=== PATIENT | female | born 1945 | race Caucasian/White ===

== ENCOUNTER 2024-05-24 18:12 | Inpatient (IN) | payer MEDICARE ==
[2024-05-24] MEDS ORDERED: Sodium Chloride 0.9% 10 ML Syringe FLUSH PRN (18:34)
[2024-05-24 18:41] LABS: BASOPHILS PERCENT AUTO 0.5 % (0.2-1.2); EOSINOPHILS ABSOLUTE AUTO 0.2 x10^3/uL (0.0-0.5); EOSINOPHILS PERCENT AUTO 3.4 % (0.0-4.0); HEMATOCRIT 42.6 % (33.0-47.0); HEMOGLOBIN 13.4 g/dL (12.0-16.0); IMMATURE GRAN ABSOLUTE AUTO 0.01 x10^3/uL (0.00-0.07); LYMPHOCYTES ABSOLUTE AUTO 1.4 x10^3/uL (1.0-4.8); LYMPHOCYTES PERCENT AUTO 23.2 % (25.0-50.0); MEAN CORPUSCULAR HEMOGLOBIN 29.1 pg (26.0-32.0); MEAN CORPUSCULAR HGB CONC 31.5 g/dL (32.0-36.0); MEAN CORPUSCULAR VOLUME 92.4 fL (78.0-93.0); MONOCYTES ABSOLUTE AUTO 0.5 x10^3/uL (0.0-0.8); MONOCYTES PERCENT AUTO 7.6 % (2.0-11.0); NEUTROPHILS ABSOLUTE AUTO 3.9 x10^3/uL (1.8-7.7); NEUTROPHILS PERCENT AUTO 65.1 % (50.0-80.0); PLATELET COUNT,PLT 122 x10^3/uL (130-400); RED BLOOD CELL COUNT 4.61 x10^6/uL (4.00-5.50); WHITE BLOOD CELL COUNT,WBC 5.9 x10^3/uL (4.0-10.0)
[2024-05-24 19:04] LABS: A/G RATIO 0.72; ALBUMIN 3.1 g/dL (3.4-5.0); ANION GAP 13.5 mmol/L (5-15); BILIRUBIN TOTAL 0.5 mg/dL (0.2-1.0); CALCIUM 8.3 mg/dL (8.5-10.1); EST CRCL DRUG DOSING (CG) 16.93 mL/min; MAGNESIUM 1.9 mg/dL (1.8-2.4); POTASSIUM,K 4.5 mmol/L (3.5-5.1); PROTEIN TOTAL,TP 7.4 g/dL (6.4-8.2)
[2024-05-24] MEDS: Furosemide 40 MG/4 ML VIAL IV ONE (19:15)
[2024-05-24 19:46] LABS: CORONAVIRUS COVID-19 NAA NEGATIVE (NEGATIVE); INFLUENZA A NAA NEGATIVE (NEGATIVE); INFLUENZA B NAA NEGATIVE (NEGATIVE); RESPIRATORY SYNCYTIAL VIR NAA NEGATIVE (NEGATIVE)
[2024-05-24] MEDS ORDERED: Triamcinolone Acetonide 0.1% Crm 15 GM Tube TOP PRN (21:51)
[2024-05-24] MEDS ORDERED: Non-Formulary Medication 1 Each (Betamethasone Dipropionate [Diprosone 0.05% Crm] 15 GM Tu TOP PRN (21:51)
[2024-05-24] MEDS ORDERED: BETAMETHASONE DIPROPIONATE TOP PRN (22:17)
[2024-05-24] MEDS: Nicotine 14 MG/24 Hr Patch TRDERM SCH (23:31)
[2024-05-25] MEDS: Heparin Sodium 5,000 Units/ML Vial SUBCUT SCH ×2 (03:16→08:42)
[2024-05-25 06:47] LABS: BASOPHILS PERCENT AUTO 0.6 % (0.2-1.2); EOSINOPHILS ABSOLUTE AUTO 0.1 x10^3/uL (0.0-0.5); EOSINOPHILS PERCENT AUTO 1.7 % (0.0-4.0); HEMATOCRIT 41.1 % (33.0-47.0); HEMOGLOBIN 12.8 g/dL (12.0-16.0); LYMPHOCYTES ABSOLUTE AUTO 1.4 x10^3/uL (1.0-4.8); LYMPHOCYTES PERCENT AUTO 26.3 % (25.0-50.0); MEAN CORPUSCULAR HEMOGLOBIN 29.2 pg (26.0-32.0); MEAN CORPUSCULAR HGB CONC 31.1 g/dL (32.0-36.0); MEAN CORPUSCULAR VOLUME 93.6 fL (78.0-93.0); MONOCYTES ABSOLUTE AUTO 0.5 x10^3/uL (0.0-0.8); MONOCYTES PERCENT AUTO 9.5 % (2.0-11.0); NEUTROPHILS ABSOLUTE AUTO 3.2 x10^3/uL (1.8-7.7); NEUTROPHILS PERCENT AUTO 61.9 % (50.0-80.0); PLATELET COUNT,PLT 107 x10^3/uL (130-400); RED BLOOD CELL COUNT 4.39 x10^6/uL (4.00-5.50); WHITE BLOOD CELL COUNT,WBC 5.2 x10^3/uL (4.0-10.0)
[2024-05-25 07:09] LABS: A/G RATIO 0.74; ALBUMIN 2.8 g/dL (3.4-5.0); ANION GAP 8.4 mmol/L (5-15); BILIRUBIN TOTAL 0.5 mg/dL (0.2-1.0); CALCIUM 8.4 mg/dL (8.5-10.1); CREATININE 1.7 mg/dL (0.55-1.02); EST CRCL DRUG DOSING (CG) 19.92 mL/min; POTASSIUM,K 4.4 mmol/L (3.5-5.1); PROTEIN TOTAL,TP 6.6 g/dL (6.4-8.2)
[2024-05-25] MEDS: Bumetanide 1 MG Tab PO SCH (08:34)
[2024-05-25] MEDS: FLUoxetine 20 MG Cap PO SCH (08:35)
[2024-05-25] MEDS: Gabapentin 100 MG Cap PO SCH ×2 (08:35→14:20)
[2024-05-25] MEDS: Metoprolol Succinate 50 MG Tab.ER PO SCH (08:35)
[2024-05-25] MEDS: Furosemide 40 MG/4 ML VIAL IV SCH (08:36)
[2024-05-25] MEDS: Acetaminophen 325 MG Tab PO PRN (08:44)
[2024-05-25] MEDS: NICOTINE Remove Patch TRDERM SCH (08:49)
[2024-05-25] MEDS: Furosemide 40 MG/4 ML VIAL IV ONE (14:20)
[2024-05-25] MEDS: Gabapentin 300 MG Cap PO SCH (20:18)
[2024-05-26 07:47] LABS: HEMATOCRIT 41.7 % (33.0-47.0); HEMOGLOBIN 12.7 g/dL (12.0-16.0); MEAN CORPUSCULAR HEMOGLOBIN 28.9 pg (26.0-32.0); MEAN CORPUSCULAR HGB CONC 30.5 g/dL (32.0-36.0); RED BLOOD CELL COUNT 4.39 x10^6/uL (4.00-5.50); WHITE BLOOD CELL COUNT,WBC 5.2 x10^3/uL (4.0-10.0)
[2024-05-26 07:57] LABS: CALCIUM 8.3 mg/dL (8.5-10.1); CREATININE 1.7 mg/dL (0.55-1.02); EST CRCL DRUG DOSING (CG) 19.92 mL/min; MAGNESIUM 1.8 mg/dL (1.8-2.4)
[2024-05-26] MEDS: Metoprolol Succinate 25 MG Tab.ER PO SCH (09:04)
[2024-05-26] MEDS: Furosemide 40 MG/4 ML VIAL IV ONE (13:59)
[2024-05-27 07:03] LABS: ANION GAP 7.9 mmol/L (5-15); CALCIUM 8.1 mg/dL (8.5-10.1); CREATININE 1.5 mg/dL (0.55-1.02); EST CRCL DRUG DOSING (CG) 22.57 mL/min; MAGNESIUM 1.7 mg/dL (1.8-2.4); POTASSIUM,K 3.9 mmol/L (3.5-5.1)
[2024-05-27] MEDS: Albuterol/Ipratropium 3.0-0.5 MG/3 ML Neb Soln NEB ONE (08:50)
[2024-05-27] MEDS: Magnesium Chloride 64 MG Tab.ER PO ONE (08:51)
[2024-05-27] MEDS: Bumetanide 1 MG Tab PO SCH (08:51)
[2024-05-27 14:31] VITALS: BP 168/87; PULSE 68
== END 2024-05-27 13:58 | disposition home or self-care (01) | DRG 291 ==
LOC: SUPCPDRO 18:12 → VM.ED 18:12 → VM.MS 19:54
PROVIDERS: ADMIT Nurse Practitioner Family; ATTEND Family Medicine
DX: I11.0 Hypertensive heart disease with heart failure (principal); I50.23 Acute on chronic systolic (congestive) heart failure; R09.02 Hypoxemia; J96.01 Acute respiratory failure with hypoxia; N17.9 Acute kidney failure, unspecified; Z68.30 Body mass index [BMI] 30.0-30.9, adult; I27.20 Pulmonary hypertension, unspecified; F17.210 Nicotine dependence, cigarettes, uncomplicated; I25.10 Atherosclerotic heart disease of native coronary artery without angina pectoris; E78.00 Pure hypercholesterolemia, unspecified; F41.9 Anxiety disorder, unspecified; F32.A Depression, unspecified; E66.9 Obesity, unspecified; Z85.828 Personal history of other malignant neoplasm of skin; Z79.899 Other long term (current) drug therapy; Z68.27 Body mass index [BMI] 27.0-27.9, adult; Z98.890 Other specified postprocedural states
CPT/HCPCS: 0241U; 36415; 71045; 71046; 80048; 80053; 83735; 83880; 84484; 85025; 85027; 93005; 93010; 94760; 96374; 97116-GP; 97161-GP; 99284; 99285-25; A9270-GY; J1644; J1940; J7620-GY

== ENCOUNTER 2025-06-09 08:34 | Inpatient (IN) | payer MEDICARE ==
[2025-06-09] MEDS ORDERED: Formoterol/Mometasone 200-5 MCG 13 GM Inhaler INH PRN (16:55)
[2025-06-09] MEDS ORDERED: Triamcinolone Acetonide 0.1% Crm 15 GM Tube TOP PRN (16:55)
[2025-06-09] MEDS ORDERED: Albuterol HFA 18 Gm Inhaler INH PRN (16:55)
[2025-06-09] MEDS ORDERED: Tiotropium Bromide 4 GM Inhalation Spray (2.5mcg/1 dose; 10 doses) INH PRN (17:19)
[2025-06-09] MEDS: Clobetasol 0.05% Crm 30 GM Tube TOP SCH (20:18)
[2025-06-16 07:09] LABS: PLATELET COUNT,PLT 191.0 x10^3/uL (130-400); RED BLOOD CELL COUNT 3.23 x10^6/uL (4.00-5.50); WHITE BLOOD CELL COUNT,WBC 8.8 x10^3/uL (4.0-10.0)
[2025-06-16 07:30] LABS: A/G RATIO 0.55; ALANINE AMINOTRANSFERASE,ALT 7.0 U/L (14-59); ASPARTATE AMNIOTRANSFERASE,AST 20.0 U/L (15-37); BILIRUBIN TOTAL 0.8 mg/dL (0.2-1.0); BLOOD UREA NITROGEN,BUN 55.0 mg/dL (7-18); CARBON DIOXIDE,CO2 26.0 mmol/L (21-32); CHLORIDE,CL 102.0 mmol/L (98-107); CREATININE 3.0 mg/dL (0.55-1.02); EST CRCL DRUG DOSING (CG) 10.56 mL/min; GLUCOSE RANDOM 103.0 mg/dL (70-99); PHOSPHORUS 4.1 mg/dL (2.6-4.7); POTASSIUM,K 4.5 mmol/L (3.5-5.1); PROTEIN TOTAL,TP 6.5 g/dL (6.4-8.2); SODIUM,NA 138.0 mmol/L (136-145)
[2025-06-16 07:36] LABS: ESTIMATED GFR 15.0 mL/min (>=60)
[2025-06-19] MEDS: Menthol 10%/Methyl Salicylate 15% 85 GM Tube TOP PRN (20:45)
== END 2025-06-20 09:10 | disposition home or self-care (01) | DRG 948 ==
LOC: VM.MS 14:00
PROVIDERS: ADMIT Nurse Practitioner Family; ATTEND Nurse Practitioner Family
DX: R53.1 Weakness (principal); I50.22 Chronic systolic (congestive) heart failure; D62 Acute posthemorrhagic anemia; I13.0 Hypertensive heart and chronic kidney disease with heart failure and stage 1 through stage 4 chronic kidney disease, or unspecified chronic kidney disease; F33.0 Major depressive disorder, recurrent, mild; K92.0 Hematemesis; I25.10 Atherosclerotic heart disease of native coronary artery without angina pectoris; N18.9 Chronic kidney disease, unspecified; I27.20 Pulmonary hypertension, unspecified; F41.9 Anxiety disorder, unspecified; E66.9 Obesity, unspecified; F17.200 Nicotine dependence, unspecified, uncomplicated; J43.9 Emphysema, unspecified; E78.2 Mixed hyperlipidemia; R06.89 Other abnormalities of breathing; I77.1 Stricture of artery; I35.0 Nonrheumatic aortic (valve) stenosis; Z79.899 Other long term (current) drug therapy; Z79.52 Long term (current) use of systemic steroids; Z79.891 Long term (current) use of opiate analgesic; Z79.82 Long term (current) use of aspirin; Z68.23 Body mass index [BMI] 23.0-23.9, adult; Z85.828 Personal history of other malignant neoplasm of skin; Z98.49 Cataract extraction status, unspecified eye; Z98.890 Other specified postprocedural states; Z95.5 Presence of coronary angioplasty implant and graft; Q82.8 Other specified congenital malformations of skin
CPT/HCPCS: 36415; 80053; 83735; 84100; 85027; 94760; 97110-GP; 97116-GP; 97161-GP; 97165-GO; 97530-GO; 97530-GP; 97535-GO; A9270-GY

== ENCOUNTER 2025-09-01 15:25 | Inpatient (IN) | payer MEDICARE ==
[2025-09-01] MEDS ORDERED: Sodium Chloride 0.9% 10 ML Syringe FLUSH PRN (17:00)
[2025-09-01] MEDS: Heparin Sodium 5,000 Units/ML Vial SUBCUT SCH (21:04)
[2025-09-02 08:07] LABS: BASOPHILS ABSOLUTE AUTO 0.1 x10^3/uL (0.0-0.2); BASOPHILS PERCENT AUTO 0.7 % (0.2-1.2); EOSINOPHILS ABSOLUTE AUTO 0.4 x10^3/uL (0.0-0.5); EOSINOPHILS PERCENT AUTO 5.3 % (0.0-4.0); IMMATURE GRAN ABSOLUTE AUTO 0.03 x10^3/uL (0.00-0.07); IMMATURE GRAN PERCENT AUTO 0.40 % (0.00-0.43); LYMPHOCYTES ABSOLUTE AUTO 1.4 x10^3/uL (1.0-4.8); LYMPHOCYTES PERCENT AUTO 19.2 % (25.0-50.0); MONOCYTES ABSOLUTE AUTO 0.4 x10^3/uL (0.0-0.8); MONOCYTES PERCENT AUTO 5.0 % (2.0-11.0); NEUTROPHILS ABSOLUTE AUTO 5.1 x10^3/uL (1.8-7.7); NEUTROPHILS PERCENT AUTO 69.4 % (50.0-80.0); PLATELET COUNT,PLT 209 x10^3/uL (130-400); RED BLOOD CELL COUNT 2.92 x10^6/uL (4.00-5.50); WHITE BLOOD CELL COUNT,WBC 7.3 x10^3/uL (4.0-10.0)
[2025-09-02 08:34] LABS: A/G RATIO 0.42; ALANINE AMINOTRANSFERASE,ALT 9.0 U/L (14-59); ASPARTATE AMNIOTRANSFERASE,AST 13.0 U/L (15-37); BILIRUBIN TOTAL 0.3 mg/dL (0.2-1.0); CARBON DIOXIDE,CO2 31.0 mmol/L (21-32); CHLORIDE,CL 98.0 mmol/L (98-107); CREATININE 2.7 mg/dL (0.55-1.02); EST CRCL DRUG DOSING (CG) 11.0 mL/min; GLUCOSE RANDOM 89.0 mg/dL (70-99); POTASSIUM,K 4.2 mmol/L (3.5-5.1); PROTEIN TOTAL,TP 6.1 g/dL (6.4-8.2); SODIUM,NA 136.0 mmol/L (136-145)
[2025-09-02 08:35] LABS: BLOOD UREA NITROGEN,BUN 76.0 mg/dL (7-18); ESTIMATED GFR 17.0 mL/min (>=60)
[2025-09-04] MEDS ORDERED: Formoterol/Mometasone 200-5 MCG 13 GM Inhaler INH PRN (07:06)
[2025-09-04 07:23] LABS: BASOPHILS ABSOLUTE AUTO 0.0 x10^3/uL (0.0-0.2); BASOPHILS PERCENT AUTO 0.3 % (0.2-1.2); EOSINOPHILS ABSOLUTE AUTO 0.3 x10^3/uL (0.0-0.5); EOSINOPHILS PERCENT AUTO 3.7 % (0.0-4.0); IMMATURE GRAN ABSOLUTE AUTO 0.04 x10^3/uL (0.00-0.07); IMMATURE GRAN PERCENT AUTO 0.40 % (0.00-0.43); LYMPHOCYTES ABSOLUTE AUTO 1.3 x10^3/uL (1.0-4.8); LYMPHOCYTES PERCENT AUTO 14.2 % (25.0-50.0); MONOCYTES ABSOLUTE AUTO 0.5 x10^3/uL (0.0-0.8); MONOCYTES PERCENT AUTO 5.2 % (2.0-11.0); NEUTROPHILS ABSOLUTE AUTO 7.0 x10^3/uL (1.8-7.7); NEUTROPHILS PERCENT AUTO 76.2 % (50.0-80.0); PLATELET COUNT,PLT 203 x10^3/uL (130-400); RED BLOOD CELL COUNT 2.84 x10^6/uL (4.00-5.50); WHITE BLOOD CELL COUNT,WBC 9.2 x10^3/uL (4.0-10.0)
[2025-09-04 07:31] LABS: BLOOD UREA NITROGEN,BUN 55.0 mg/dL (7-18); CARBON DIOXIDE,CO2 28.0 mmol/L (21-32); CHLORIDE,CL 104.0 mmol/L (98-107); CREATININE 2.1 mg/dL (0.55-1.02); EST CRCL DRUG DOSING (CG) 14.29 mL/min; ESTIMATED GFR 23.0 mL/min (>=60); GLUCOSE RANDOM 88.0 mg/dL (70-99); PHOSPHORUS 2.9 mg/dL (2.6-4.7); POTASSIUM,K 4.6 mmol/L (3.5-5.1); SODIUM,NA 137.0 mmol/L (136-145)
[2025-09-04] MEDS: Albuterol HFA 18 Gm Inhaler INH PRN (19:07)
[2025-09-05] MEDS: Menthol 10%/Methyl Salicylate 15% 85 GM Tube TOP PRN (08:46)
[2025-09-06 07:12] LABS: BASOPHILS ABSOLUTE AUTO 0.0 x10^3/uL (0.0-0.2); BASOPHILS PERCENT AUTO 0.6 % (0.2-1.2); EOSINOPHILS ABSOLUTE AUTO 0.3 x10^3/uL (0.0-0.5); EOSINOPHILS PERCENT AUTO 5.5 % (0.0-4.0); IMMATURE GRAN ABSOLUTE AUTO 0.01 x10^3/uL (0.00-0.07); IMMATURE GRAN PERCENT AUTO 0.20 % (0.00-0.43); LYMPHOCYTES ABSOLUTE AUTO 1.2 x10^3/uL (1.0-4.8); LYMPHOCYTES PERCENT AUTO 18.9 % (25.0-50.0); MONOCYTES ABSOLUTE AUTO 0.4 x10^3/uL (0.0-0.8); MONOCYTES PERCENT AUTO 6.5 % (2.0-11.0); NEUTROPHILS ABSOLUTE AUTO 4.2 x10^3/uL (1.8-7.7); NEUTROPHILS PERCENT AUTO 68.3 % (50.0-80.0); PLATELET COUNT,PLT 177 x10^3/uL (130-400); RED BLOOD CELL COUNT 2.69 x10^6/uL (4.00-5.50); WHITE BLOOD CELL COUNT,WBC 6.2 x10^3/uL (4.0-10.0)
[2025-09-06 07:25] LABS: BLOOD UREA NITROGEN,BUN 54.0 mg/dL (7-18); CARBON DIOXIDE,CO2 30.0 mmol/L (21-32); CHLORIDE,CL 103.0 mmol/L (98-107); CREATININE 2.3 mg/dL (0.55-1.02); EST CRCL DRUG DOSING (CG) 13.78 mL/min; ESTIMATED GFR 21.0 mL/min (>=60); GLUCOSE RANDOM 87.0 mg/dL (70-99); POTASSIUM,K 5.0 mmol/L (3.5-5.1); SODIUM,NA 136.0 mmol/L (136-145)
[2025-09-07 06:49] LABS: BASOPHILS ABSOLUTE AUTO 0.1 x10^3/uL (0.0-0.2); BASOPHILS PERCENT AUTO 0.8 % (0.2-1.2); EOSINOPHILS ABSOLUTE AUTO 0.4 x10^3/uL (0.0-0.5); EOSINOPHILS PERCENT AUTO 6.6 % (0.0-4.0); IMMATURE GRAN ABSOLUTE AUTO 0.01 x10^3/uL (0.00-0.07); IMMATURE GRAN PERCENT AUTO 0.20 % (0.00-0.43); LYMPHOCYTES ABSOLUTE AUTO 1.3 x10^3/uL (1.0-4.8); LYMPHOCYTES PERCENT AUTO 22.2 % (25.0-50.0); MONOCYTES ABSOLUTE AUTO 0.4 x10^3/uL (0.0-0.8); MONOCYTES PERCENT AUTO 7.0 % (2.0-11.0); NEUTROPHILS ABSOLUTE AUTO 3.8 x10^3/uL (1.8-7.7); NEUTROPHILS PERCENT AUTO 63.2 % (50.0-80.0); PLATELET COUNT,PLT 182 x10^3/uL (130-400); RED BLOOD CELL COUNT 2.77 x10^6/uL (4.00-5.50); WHITE BLOOD CELL COUNT,WBC 6.0 x10^3/uL (4.0-10.0)
[2025-09-07 07:00] LABS: BLOOD UREA NITROGEN,BUN 51.0 mg/dL (7-18); CARBON DIOXIDE,CO2 29.0 mmol/L (21-32); CHLORIDE,CL 102.0 mmol/L (98-107); CREATININE 2.3 mg/dL (0.55-1.02); EST CRCL DRUG DOSING (CG) 13.78 mL/min; GLUCOSE RANDOM 90.0 mg/dL (70-99); POTASSIUM,K 5.0 mmol/L (3.5-5.1); SODIUM,NA 137.0 mmol/L (136-145)
[2025-09-07 07:02] LABS: ESTIMATED GFR 21.0 mL/min (>=60)
[2025-09-07] MEDS: Lactobacillus Rhamnosus GG (Probiotic) Cap PO SCH (10:02)
[2025-09-07 10:03] VITALS: BP 110/47; PULSE 75
== END 2025-09-07 12:25 | disposition swing bed (61) | DRG 371 ==
LOC: VM.MS 15:25
PROVIDERS: ADMIT Nurse Practitioner Family; ATTEND Family Medicine
DX: A04.72 Enterocolitis due to Clostridium difficile, not specified as recurrent (principal); I50.21 Acute systolic (congestive) heart failure; N17.9 Acute kidney failure, unspecified; E46 Unspecified protein-calorie malnutrition; N18.4 Chronic kidney disease, stage 4 (severe); I13.0 Hypertensive heart and chronic kidney disease with heart failure and stage 1 through stage 4 chronic kidney disease, or unspecified chronic kidney disease; A09 Infectious gastroenteritis and colitis, unspecified; E86.0 Dehydration; H91.90 Unspecified hearing loss, unspecified ear; I25.10 Atherosclerotic heart disease of native coronary artery without angina pectoris; E78.00 Pure hypercholesterolemia, unspecified; J44.9 Chronic obstructive pulmonary disease, unspecified; F41.9 Anxiety disorder, unspecified; F32.A Depression, unspecified; E66.9 Obesity, unspecified; Z68.20 Body mass index [BMI] 20.0-20.9, adult; Z79.899 Other long term (current) drug therapy; Z85.828 Personal history of other malignant neoplasm of skin; Z98.49 Cataract extraction status, unspecified eye; Z79.82 Long term (current) use of aspirin; Z95.5 Presence of coronary angioplasty implant and graft; Z98.890 Other specified postprocedural states
CPT/HCPCS: 36415; 80048; 80053; 80069; 83735; 85025; 94640; 94760; 97116-GP; 97161-GP; A9270-GY; J1644; J7030

== ENCOUNTER 2025-09-07 10:18 | Inpatient (IN) | payer MEDICARE ==
[2025-09-07] MEDS ORDERED: Albuterol HFA 18 Gm Inhaler INH PRN (12:20)
[2025-09-07] MEDS ORDERED: Formoterol/Mometasone 200-5 MCG 13 GM Inhaler INH PRN (12:20)
[2025-09-07] MEDS ORDERED: Menthol 10%/Methyl Salicylate 15% 85 GM Tube TOP PRN (12:20)
[2025-09-07] MEDS ORDERED: Sodium Chloride 0.9% 10 ML Syringe FLUSH PRN ×2 (12:20)
[2025-09-07] MEDS: Pantoprazole 20 MG Tab, Delayed Release PO SCH (17:02)
[2025-09-07] MEDS: Lactobacillus Rhamnosus GG (Probiotic) Cap PO SCH (22:22)
[2025-09-07] MEDS: Heparin Sodium 5,000 Units/ML Vial SUBCUT SCH (22:22)
[2025-09-11 08:52] LABS: A/G RATIO 0.46; ALANINE AMINOTRANSFERASE,ALT 16.0 U/L (14-59); ASPARTATE AMNIOTRANSFERASE,AST 18.0 U/L (15-37); BILIRUBIN TOTAL 0.3 mg/dL (0.2-1.0); BLOOD UREA NITROGEN,BUN 46.0 mg/dL (7-18); CARBON DIOXIDE,CO2 30.0 mmol/L (21-32); CHLORIDE,CL 101.0 mmol/L (98-107); CREATININE 2.0 mg/dL (0.55-1.02); EST CRCL DRUG DOSING (CG) 15.85 mL/min; ESTIMATED GFR 25.0 mL/min (>=60); GLUCOSE RANDOM 125.0 mg/dL (70-99); POTASSIUM,K 4.6 mmol/L (3.5-5.1); PROTEIN TOTAL,TP 7.0 g/dL (6.4-8.2); SODIUM,NA 138.0 mmol/L (136-145)
== END 2025-09-14 13:00 | disposition home or self-care (01) | DRG 948 ==
LOC: VM.MS 12:20
PROVIDERS: ADMIT Family Medicine; ATTEND Family Medicine
DX: R53.1 Weakness (principal); A04.72 Enterocolitis due to Clostridium difficile, not specified as recurrent; N18.4 Chronic kidney disease, stage 4 (severe); I13.0 Hypertensive heart and chronic kidney disease with heart failure and stage 1 through stage 4 chronic kidney disease, or unspecified chronic kidney disease; I50.22 Chronic systolic (congestive) heart failure; E46 Unspecified protein-calorie malnutrition; N17.9 Acute kidney failure, unspecified; E86.0 Dehydration; F17.210 Nicotine dependence, cigarettes, uncomplicated; F41.9 Anxiety disorder, unspecified; F32.A Depression, unspecified; I25.10 Atherosclerotic heart disease of native coronary artery without angina pectoris; H91.90 Unspecified hearing loss, unspecified ear; E66.9 Obesity, unspecified; J44.9 Chronic obstructive pulmonary disease, unspecified; E78.00 Pure hypercholesterolemia, unspecified; Z98.49 Cataract extraction status, unspecified eye; Z79.1 Long term (current) use of non-steroidal anti-inflammatories (NSAID); Z79.899 Other long term (current) drug therapy; Z79.51 Long term (current) use of inhaled steroids; Z79.82 Long term (current) use of aspirin; Z98.890 Other specified postprocedural states; Z95.5 Presence of coronary angioplasty implant and graft; Z68.20 Body mass index [BMI] 20.0-20.9, adult
CPT/HCPCS: 36415; 80053; 94640; 94760; 97110-GP; 97116-GP; 97164-GP; A9270-GY; J1644